=== PATIENT | male | born 1955 ===

== ENCOUNTER → 2020-02-08 09:04 | Outpatient (CLI) | payer BC, SELFPAY ==
[2020-02-08 10:17] LABS: COVID19 -Nasal RAPID Negative (Negative)
== END ==
PROVIDERS: PCP Physician Assistant; Visit Provider Physician Assistant
DX: Z11.59 Encounter for screening for other viral diseases (principal)
CPT/HCPCS: 87635

== ENCOUNTER 2020-02-10 08:11 | Day surgery (SDC) | payer BC, SELFPAY ==
--- NOTE | 2020-02-10 | PATH_ITS ---
[facility] Accession Number: [id number] . 01 Material submitted: . colon - ASCENDING COLON POLYP . 01 Clinical history: . SCREENING COLONOSCOPY . 02 Diagnosis: Ascending Colon, Polyp: Tubular adenoma. MRV 02/15/2020 1222 Local . 02 Electronically signed: . Geoff Roldan MD, PhD, Pathologist NPI- [id number] . 01 Gross description: . ASCENDING COLON POLYP: Received in formalin are 2 fragment(s) of solis, soft tissue measuring 0.3 x 0.3 x 0.2 cm to 0.2 x 0.1 x 0.1 cm submitted entirely in 1 cassette(s) /QBJ 02/11/2020 0439 Local . 02 Pathologist provided ICD-10: D12.2 . 02 CPT . 414519 Performed at: 01 [facility] [address] [id number] MD Roland Samuels MD Phone: [phone] Performed at: 02 [facility] [address] [place], [place] [id number] MD Donna Reyna MD Phone: [phone]
[2020-02-10] MEDS: SODIUM CHLORIDE 0.9% 1,000 ML 125 ML IV (08:26)
[2020-02-10 08:33] VITALS: BP 101/68; PULSE 64; RESP 20; TEMP 36.6; O2SAT 98; BMI 22.8
--- NOTE | 2020-02-10 08:44 | P.HP_ITS ---
History of Present Illness History of Present Illness Date Patient Seen: 02/10/20 Time Patient Seen: 08:49 Chief complaint: SCREENING COLONOSCOPY Narrative: Patient is a very pleasant 64-year-old male who presented for screening colonoscopy. His last colonoscopy was in 2007 in [place]. He was last seen in the office January 14, 2020, he denies any changes in medications or medical history since that time. Patient History Medical History CAD (coronary artery disease) Surgical History (Updated 02/10/20 @ 07:30 by Rosamaria Mondragon RN) H/O heart artery stent Family & Social History Family History Father Heart disease Mother Obesity Hypertension Diabetes mellitus Family/Other Obesity Hypertension Diabetes mellitus Heart disease Tobacco & Substance use: Smoking Status Never smoker Meds Home Medications and Allergies Home Medications Medication Instructions Recorded Confirmed Type aspirin 81 mg tablet,delayed 81 mg PO DAILY 01/04/20 01/04/20 History release multivitamin 1 tab PO DAILY 01/04/20 01/04/20 History omega-3 fatty acids 1,000 mg 2,000 mg PO DAILY 01/04/20 01/04/20 History capsule rosuvastatin 10 mg tablet 10 mg PO DAILY 01/04/20 01/04/20 History Allergies Allergy/AdvReac Type Severity Reaction Status Date / Time No Known Drug Allergies Allergy Verified 02/10/20 08:45 Review of Systems Review of Systems ROS: Yes All systems reviewed with the patient and are negative except as otherwise documented Exam Const General: cooperative, healthy appearing, comfortable, well developed, well groomed and No acute distress Nutritional Appearance: average body habitus Orientation: alert, awake and oriented x3 HENMT Head: normocephalic and atraumatic Resp Effort & Inspection: normal respiratory effort and able to speak in complete sentences Auscultation: clear to auscultation bilaterally Cardio Rate: regular rate Rhythm: regular rhythm Heart Sounds: S1 normal and S2 normal GI Palpation: soft and No tender Auscultation: normal bowel sounds Extrem Right lower extremity: no edema Left lower extremity: no edema Assessment & Plan Assessment & Plan narrative: 1. Screening colonoscopy, last colonoscopy 2007 Colonoscopy today, further recommendations to follow
[2020-02-10] MEDS: MIDAZOLAM 5 MG/5 ML VIAL IV (08:59)
[2020-02-10] MEDS: fentaNYL 250 MCG/5 ML INJ IV (08:59)
[2020-02-10 09:20] VITALS: BP 103/69; PULSE 72; RESP 10; TEMP 36.4; O2SAT 96
[2020-02-10 09:21] VITALS: BP 112/74; PULSE 63; RESP 10; O2SAT 97
--- NOTE | 2020-02-10 09:22 | P.OP.ENDO_ITS ---
Operative Date/Time/Diagnoses Date of procedure: 02/10/20 Time of procedure: 08:56 Procedure Notes Procedure in detail: Surgeon: Deborah Lee DO Procedure: Colonoscopy with polypectomy Preoperative diagnosis: 1. Screening colonoscopy, last colonoscopy 2007 Postoperative diagnosis: 1. 3 mm ascending colon polyp 2. Grade 1 internal hemorrhoids 3. Hypertrophied anal papilla Medications: Conscious sedation using 2 mg IV of Midazolam and 100 mcg IV of Fentanyl Preanesthesia Assessment An H and P was performed/updated and the Px?s ASA class is 2. The procedure was discussed in detail with the patient. The potential risks and complications including infection, bleeding, missed lesions, perforation, need for surgery in case of perforation, prolonged hospital stay, and were explained. A brief question and answer period was allotted and once all questions were answered, informed consent was obtained. The patient was brought back to the procedure room and placed on standard monitoring. The patient?s vital signs were monitored continuously throughout the entire procedure. Prior to starting, a timeout was performed to confirm the patient?s identity, allergies, medications, and procedure. Procedure in detail The patient was placed in left lateral decubitus position and once adequate sedation was obtained a LINDA was performed. The digital rectal examination did not reveal any palpable lesions. The tip of the colonoscope was placed in the anal canal and advanced without difficulty all the way to the cecum which was identified by the appendiceal orifice and the ileocecal valve. Careful examination of all [place] of the colon was performed with irrigation of any residual stool. 3 mm polyp noted in the ascending colon, removed with cold forceps. Grade 1 internal hemorrhoids were noted on retroflexion as well as benign-appe aring hypertrophied anal papilla The patient tolerated the procedure well and will be brought back to the recovery area to be discharged once criteria are met. The prep was judged to be good/excellent and adequate to identify polyps less than 5 mm. The withdrawal time was 9min. The total physician intraservice time was 14min. Complications There were no complications and estimated blood loss was minimal. Recommendations: Resume previous diet Continue outPx medications Follow up pathology results Repeat colonoscopy based on pathology results An emergency contact number was given to the patient for any complications related to the procedure
[2020-02-10 09:26] VITALS: BP 104/67; PULSE 68; RESP 10; O2SAT 97
[2020-02-10 09:32] VITALS: BP 112/76; PULSE 69; RESP 12; O2SAT 97
== END 2020-02-10 09:40 | disposition home or self-care (01) ==
PROVIDERS: PCP Physician Assistant; Referring Provider Student in an Organized Health Care Education/Training Program; Visit Provider Student in an Organized Health Care Education/Training Program
PROC: 0DJD8ZZ Inspection of Lower Intestinal Tract, Via Natural or Artificial Opening Endoscopic (ICD-10-PCS; CPT 45378; principal; 2020-02-10 09:30)
DX: Z12.11 Encounter for screening for malignant neoplasm of colon (principal); K64.0 First degree hemorrhoids; K64.4 Residual hemorrhoidal skin tags; D12.2 Benign neoplasm of ascending colon
CPT/HCPCS: 45380; J2250; J3010

== ENCOUNTER → 2021-11-02 12:11 | Outpatient (CLI) | payer BC, SELFPAY ==
--- NOTE | 2021-11-02 | DI.US.S_ITS ---
PROCEDURE: US CAROTID DOPPLER BI INDICATIONS: BILATERAL CAROTID ARTERY DISEASE TECHNIQUE: Color and pulse Doppler interrogation was performed of both carotid systems, with image documentation and velocity measurements. COMPARISON: None. FINDINGS: Stenosis calculations are based on SRU (Society of Radiologists in Ultras[employer]) criteria. The flow velocities and the arterial waveforms are normal within both carotid arterial systems. Atherosclerotic plaque is seen on both sides. The estimated degree of internal carotid artery stenosis is less than 50%. Antegrade flow is confirmed within both vertebral arteries. IMPRESSION: No hemodynamically significant stenosis is seen. Atherosclerotic plaque is noted bilaterally. Dictated by: Ismael Watson M.D. on 11/02/2021 at 12:57 Approved by: Ismael Watson M.D. on 11/02/2021 at 12:58
== END ==
PROVIDERS: PCP Physician Assistant; Referring Provider Internal Medicine Cardiovascular Disease; Visit Provider Internal Medicine Cardiovascular Disease
DX: I65.23 Occlusion and stenosis of bilateral carotid arteries
CPT/HCPCS: 93880